=== PATIENT | male | born 1955 | race Caucasian/White ===

== ENCOUNTER 2020-04-15 15:09 | Emergency (ER) | payer SELFPAY ==
[~2020-04-15] VITALS: Ht 162.6 cm; Wt 82.0 kg
[2020-04-15 15:14] VITALS: BP 139/80
== END 2020-04-15 16:30 | disposition left against medical advice (07) ==
LOC: ER 15:09
DX: Z53.21 Procedure and treatment not carried out due to patient leaving prior to being seen by health care provider (principal)
CPT/HCPCS: 93005

== ENCOUNTER 2022-06-30 18:50 | Emergency (ER) | payer MEDICAID ==
[~2022-06-30] VITALS: Ht 175.3 cm; Wt 85.0 kg
[2022-06-30 18:53] VITALS: BP 171/83
[2022-06-30] MEDS ORDERED: NIRM1TAB4 PO (19:40)
== END 2022-06-30 20:11 | disposition home or self-care (01) ==
LOC: ER 18:50
DX: U07.1 COVID-19 (principal); I10 Essential (primary) hypertension; E11.9 Type 2 diabetes mellitus without complications; Z98.890 Other specified postprocedural states
CPT/HCPCS: 99281

== ENCOUNTER 2023-07-26 15:45 | Emergency (ER) | payer MEDICARE, MEDICAID ==
[~2023-07-26] VITALS: Ht 170.2 cm; Wt 114.0 kg
[~2023-07-26 15:45] MED LIST: NIRM1TAB4 PO
[2023-07-26 15:56] VITALS: BP 141/75; PULSE 86; RESP 18; TEMP 98.3; O2SAT 97
== END 2023-07-26 18:22 | disposition left against medical advice (07) ==
LOC: ER 15:45
DX: S00.81XA Abrasion of other part of head, initial encounter (principal); E11.9 Type 2 diabetes mellitus without complications; I10 Essential (primary) hypertension; Z98.890 Other specified postprocedural states; W01.0XXA Fall on same level from slipping, tripping and stumbling without subsequent striking against object, initial encounter; Y93.89 Activity, other specified; Y92.89 Other specified places as the place of occurrence of the external cause; Y99.8 Other external cause status
CPT/HCPCS: 99283

== ENCOUNTER 2023-08-22 18:58 | Emergency (ER) | payer MEDICARE, MEDICAID ==
[2023-08-22] MEDS ORDERED: BACITRACIN ZINC OINT UDPKT TOP ONE (19:15)
== END 2023-08-22 21:14 | disposition left against medical advice (07) ==
LOC: ER 18:58
DX: S59.911A Unspecified injury of right forearm, initial encounter (principal); F10.229 Alcohol dependence with intoxication, unspecified; E11.9 Type 2 diabetes mellitus without complications; I10 Essential (primary) hypertension; Y90.0 Blood alcohol level of less than 20 mg/100 ml; W18.39XA Other fall on same level, initial encounter; Y93.89 Activity, other specified; Y92.89 Other specified places as the place of occurrence of the external cause; Y99.8 Other external cause status
CPT/HCPCS: 99281

== ENCOUNTER 2024-01-09 14:56 | Emergency (ER) | payer MEDICARE, MEDICAID ==
[~2024-01-09] VITALS: Ht 165.1 cm; Wt 73.0 kg
[2024-01-09 15:00] VITALS: BP 131/71; PULSE 92; RESP 18; TEMP 98.2; O2SAT 94
== END 2024-01-09 17:00 | disposition left against medical advice (07) ==
LOC: ER 14:56
DX: F10.229 Alcohol dependence with intoxication, unspecified (principal); M54.50 Low back pain, unspecified; E11.9 Type 2 diabetes mellitus without complications; I10 Essential (primary) hypertension; Y90.9 Presence of alcohol in blood, level not specified
CPT/HCPCS: 99283